=== PATIENT | female | born 2000 | race Caucasian/White ===

== ENCOUNTER 2022-09-29 15:14 | Emergency (ER) | payer BC, MEDICAID ==
[2022-09-29] MEDS ORDERED: Take Home: Amoxicillin/Clavulanate K 875-125 MG Tab, 2 Tab Pack PO ONE (15:24)
== END 2022-09-29 15:30 | disposition home or self-care (01) ==
LOC: VM.ED 15:14
DX: S41.151A Open bite of right upper arm, initial encounter (principal); W55.01XA Bitten by cat, initial encounter
CPT/HCPCS: 99283; A9270-GY